=== PATIENT | male | born 1940 | race Caucasian/White ===

== ENCOUNTER 2024-12-30 19:10 | Emergency (ER) | payer BC, MEDICARE ==
[~2024-12-30] VITALS: Ht 180.3 cm; Wt 106.6 kg
[2024-12-30 21:45] VITALS: BP 124/75; TEMP 98.1; O2SAT 97
== END 2024-12-30 21:46 | disposition home or self-care (01) ==
LOC: ER 19:14
DX: S16.1XXA Strain of muscle, fascia and tendon at neck level, initial encounter (principal); S63.592A Other specified sprain of left wrist, initial encounter; S00.81XA Abrasion of other part of head, initial encounter; I10 Essential (primary) hypertension; Z60.2 Problems related to living alone; Z90.89 Acquired absence of other organs; Z96.652 Presence of left artificial knee joint; W22.8XXA Striking against or struck by other objects, initial encounter; Y93.89 Activity, other specified; Y92.009 Unspecified place in unspecified non-institutional (private) residence as the place of occurrence of the external cause; Y99.8 Other external cause status
CPT/HCPCS: 70450-TC; 70486-TC; 72125-TC; 73110

== ENCOUNTER 2025-06-15 18:18 | Emergency (ER) | payer MEDICARE, BC ==
[~2025-06-15] VITALS: Ht 180.3 cm; Wt 108.4 kg
[2025-06-15 20:55] VITALS: BP 128/70; TEMP 98; O2SAT 99
== END 2025-06-15 20:56 | disposition home or self-care (01) ==
LOC: ER 18:23
DX: S00.81XA Abrasion of other part of head, initial encounter (principal); I10 Essential (primary) hypertension; S80.211A Abrasion, right knee, initial encounter; S80.212A Abrasion, left knee, initial encounter; Z85.850 Personal history of malignant neoplasm of thyroid; Z90.89 Acquired absence of other organs; Z96.652 Presence of left artificial knee joint; W01.0XXA Fall on same level from slipping, tripping and stumbling without subsequent striking against object, initial encounter; Y93.89 Activity, other specified; Y92.89 Other specified places as the place of occurrence of the external cause; Y99.9 Unspecified external cause status
CPT/HCPCS: 70450-TC